=== PATIENT | female | born 1960 | race African-American/Black ===

== ENCOUNTER 2017-10-03 08:57 | Emergency (ER) | payer OTHER, MEDICAID ==
[~2017-10-03] VITALS: Ht 177.8 cm; Wt 105.0 kg
[2017-10-03 09:01] VITALS: BP 182/98
[2017-10-03] MEDS ORDERED: KETOROLAC 60MG/2ML VIAL IM ONE (11:15)
== END 2017-10-03 14:57 | disposition home or self-care (01) ==
LOC: ER 14:05
DX: G89.29 Other chronic pain (principal); M54.30 Sciatica, unspecified side; I10 Essential (primary) hypertension; M19.90 Unspecified osteoarthritis, unspecified site; E11.9 Type 2 diabetes mellitus without complications; Z90.710 Acquired absence of both cervix and uterus
CPT/HCPCS: 96372; 99283; J1885

== ENCOUNTER 2023-12-21 08:14 | Emergency (ER) | payer BC, MEDICAID ==
[~2023-12-21] VITALS: Ht 177.8 cm; Wt 113.4 kg
[2023-12-21 08:21] VITALS: O2SAT 100
[2023-12-21] MEDS ORDERED: KETOROLAC 60MG/2ML VIAL IM ONE (08:45)
[2023-12-21] MEDS ORDERED: IBUP-1525 MT (10:13)
[2023-12-21] MEDS ORDERED: P50 MT (10:13)
[2023-12-21] MEDS ORDERED: TRAM50TA3 MT (10:13)
[2023-12-21] MEDS ORDERED: PREDNISONE 20MG TABLET PO ONE (10:30)
[2023-12-21] MEDS: KETOROLAC 60MG/2ML VIAL IM NR (12:15)
[2023-12-21 12:16] LABS: CLARITY URINE CLOUDY (CLEAR); COLOR URINE DARK YELLOW (YELLOW); GLUCOSE URINE NEGATIVE (NEGATIVE); KETONES URINE TRACE (NEGATIVE); LEUKOCYTE ESTERASE URINE 1+ (NEGATIVE); NITRITE URINE NEGATIVE (NEGATIVE); OCCULT BLOOD URINE NEGATIVE (NEGATIVE); PH URINE 5.5 (4.5-8.0); PROTEIN URINE 1+ (NEGATIVE); SPECIFIC GRAVITY URINE 1.033 (1.005-1.030)
[2023-12-21 12:29] LABS: BACTERIA URINE 2+; SQUAMOUS EPITHELIAL CELL URINE 1+ /lpf (RARE/1+); YEAST URINE NONE SEEN
[2023-12-21] MEDS: PREDNISONE 20MG TABLET PO NR (12:32)
[2023-12-21 12:48] VITALS: BP 153/85; PULSE 65; RESP 18; TEMP 98.6
== END 2023-12-21 13:04 | disposition home or self-care (01) ==
LOC: ER 08:14
DX: M54.30 Sciatica, unspecified side (principal); M19.90 Unspecified osteoarthritis, unspecified site; E11.9 Type 2 diabetes mellitus without complications; I10 Essential (primary) hypertension; Z85.9 Personal history of malignant neoplasm, unspecified; Z90.710 Acquired absence of both cervix and uterus
CPT/HCPCS: 99284; 81003; 81025; 87086; 72100; 96372; J7512; J1885